=== PATIENT | female | born 1955 | race African-American/Black ===

== ENCOUNTER 2017-01-17 01:09 | Emergency (ER) | payer MEDICARE, MEDICAID ==
[~2017-01-17] VITALS: Ht 157.5 cm; Wt 65.0 kg
[2017-01-17] MEDS ORDERED: SODIUM CHLORIDE 0.9% 1,000 ML IV ONE ×2 (01:20→03:30)
[2017-01-17] MEDS ORDERED: ONDANSETRON HCL 4MG/2ML VIAL IV STA ×2 (01:20→01:36)
[2017-01-17] MEDS ORDERED: MORPHINE SULFATE 4 MG/ML CPJ (NOT FOR IM USE) IV STA (01:20)
[2017-01-17] MEDS ORDERED: FAMOTIDINE 20MG/2ML VIAL IV STA (01:20)
[2017-01-17 02:22] LABS: BASOPHILS % 0.3 % (0.0-2.0); HEMATOCRIT. 38.9 % (36.0-48.0); HEMOGLOBIN. 13.2 g/dL (12.0-16.0); LYMPHOCYTES % 30.4 % (20.0-50.0); MEAN CORPUSCULAR HEMOGLOBIN 28.7 pg (28.0-32.0); MEAN CORPUSCULAR VOLUME 84.9 fL (81.0-99.0); MEAN PLATELET VOLUME 10.3 fl (7.4-10.4); MONOCYTES % 5.4 % (2.0-8.0); NEUTROPHILS % 63.9 % (40.0-76.0); PLATELET 129 x1000/uL (130-400); RED BLOOD CELL COUNT 4.59 mill/uL (4.2-5.4)
[2017-01-17 02:27] LABS: CARBON DIOXIDE 26 mEq/L (21-32); CHLORIDE 105 mEq/L (98-107); ETHANOL BLOOD < 10 mg/dL; TROPONIN I < 0.02 ng/mL (0.00-0.04)
[2017-01-17 02:29] LABS: INR 1.1; PROTHROMBIN TIME 11.9 sec (9.4-11.6)
[2017-01-17] MEDS ORDERED: DOCUSATE SODIUM 100MG CAPSULE PO ONE (03:45)
[2017-01-17] MEDS ORDERED: HYDROCODONE/ACETAMINOPHEN 10/325MG TABLET PO ONE (03:45)
[2017-01-17 09:31] VITALS: BP 144/89
== END 2017-01-17 09:35 | disposition home or self-care (01) ==
LOC: ER 01:18
DX: R10.9 Unspecified abdominal pain (principal); R11.2 Nausea with vomiting, unspecified; K59.00 Constipation, unspecified; R19.7 Diarrhea, unspecified; I51.7 Cardiomegaly; I11.9 Hypertensive heart disease without heart failure; E11.9 Type 2 diabetes mellitus without complications; Z88.0 Allergy status to penicillin; Z90.49 Acquired absence of other specified parts of digestive tract
CPT/HCPCS: 36415; 71010; 74176; 80053; 83605; 83690; 84484; 85025; 85610; 93005; 96361; 96374; 96375; 96376; 99285; G0482; J2270; J2405; J3490; J7030

== ENCOUNTER 2022-01-08 11:24 | Emergency (ER) | payer MEDICARE, MEDICAID ==
[~2022-01-08] VITALS: Ht 162.6 cm; Wt 79.0 kg
[~2022-01-08 11:24] MED LIST: CYAN-33 PO; DIAZ5TAB4 PO; ERGO2000 PO; LISI-186 PO; MORP60TA6 PO; OMEP1CAP25 PO; OXYC30TA PO
[2022-01-08] MEDS ORDERED: MORPHINE SULFATE 2 MG/ML CPJ (NOT FOR IM USE) IV SCH (12:30)
[2022-01-08] MEDS ORDERED: ONDANSETRON HCL 4MG/2ML INJ IV SCH (12:30)
[2022-01-08 14:00] VITALS: BP 156/68
[2022-01-08] MEDS ORDERED: LEVO750T46 MT (14:04)
[2022-01-08] MEDS ORDERED: ONDA4TAB11 PO (14:06)
[2022-01-08 14:15] LABS: BASOPHILS % 0.2 % (0.0-2.0); HEMATOCRIT. 42.3 % (36.0-48.0); HEMOGLOBIN. 14.1 g/dL (12.0-16.0); LYMPHOCYTES % 20.5 % (20.0-50.0); MEAN CORPUSCULAR HEMOGLOBIN 27.6 pg (28.0-32.0); MEAN CORPUSCULAR VOLUME 82.6 fL (81.0-99.0); MEAN PLATELET VOLUME 10.8 fl (7.4-10.4); MONOCYTES % 3.8 % (2.0-8.0); NEUTROPHILS % 75.5 % (40.0-76.0); PLATELET 214 x1000/uL (130-400); RED BLOOD CELL COUNT 5.12 mill/uL (4.2-5.4); RED CELL DISTRIBUTION WIDTH 15.9 % (11.6-14.6)
[2022-01-08 14:21] LABS: CHLORIDE 104 mEq/L (98-107)
[2022-01-08] MEDS ORDERED: POTASSIUM CHLORIDE 20MEQ TABLET SR PO ONE (15:00)
[2022-01-08] MEDS ORDERED: ONDANSETRON HCL 4MG/2ML INJ IV NR (16:00)
== END 2022-01-08 16:14 | disposition home or self-care (01) ==
LOC: ER 11:24
DX: J18.9 Pneumonia, unspecified organism (principal); E11.9 Type 2 diabetes mellitus without complications; I10 Essential (primary) hypertension; Z79.899 Other long term (current) drug therapy
CPT/HCPCS: 36415; 71045; 80053; 83690; 83880; 84484; 85025; 93005; 96374; 96375; 96376; 99285; J2270; J2405